=== PATIENT | male | born 1990 | race Caucasian/White ===

== ENCOUNTER 2017-10-06 17:09 | Emergency (ER) | payer BC, OTHER ==
[~2017-10-06] VITALS: Ht 175.3 cm; Wt 93.7 kg
[2017-10-06 17:36] VITALS: TEMP 36.6; Ht 175.3 cm; Wt 93.7 kg
[2017-10-06 19:18] VITALS: O2SAT 100
[2017-10-06 19:47] LABS: BASO % 0.3 %; BASO ABS # 0.02 K/uL (0-0.2); EOS % 0.3 %; EOS ABS # 0.02 K/uL (0-0.5); HEMATOCRIT 45.3 % (42-52); HEMOGLOBIN 16.9 g/dL (14.0-18.0); IG# 0.03 K/uL (0.00-0.02); LYMPH ABS # 1.94 K/uL (1.2-3.4); MEAN CELL VOLUME 85.5 fL (80-100); MEAN CORPUSCULAR HEMOGLOBIN 31.9 pg (25-34); MEAN CORPUSCULAR HGB CONC 37.3 g/dl (32-36); MEAN PLATELET VOLUME 10.8 fL (7.4-10.4); MONO % 5.9 %; MONO ABS # 0.46 K/uL (0.11-0.59); NEUT % 68.1 %; NEUT ABS # 5.28 K/uL (1.4-6.5); PLATELET COUNT 170 K/uL (130-400); RED CELL DISTRIBUTION WIDTH CV 12.3 % (11.5-14.5); RED CELL DISTRIBUTION WIDTH SD 38.4 fL (36.4-46.3); WHITE BLOOD COUNT 7.75 K/uL (4.8-10.8)
[2017-10-06 20:00] LABS: PTT PATIENT 30.4 SECONDS (21.0-31.0)
[2017-10-06 20:10] LABS: CALCIUM 9.1 mg/dl (8.5-10.1); CREATININE 1.03 mg/dl (0.60-1.40); POTASSIUM 3.8 mmol/L (3.5-5.1)
--- NOTE | 2017-10-06 20:17 | DIAGNOSTIC IMAGING REPORT ---
CHEST 2 VIEWS ROUTINE CLINICAL HISTORY: Shortness of breath. Evaluate for pneumonia. COMPARISON STUDY: No previous studies for comparison. FINDINGS: Lung volumes are within normal limits. There is no consolidation. Pulmonary vascularity is normal. No pneumothorax or pleural effusion is present. Cardiac size is normal. Mediastinal contours are normal. Left chest wall deformity is chronic. IMPRESSION: No acute cardiopulmonary findings. Electronically signed by: Almas Martinez M.D. 10/06/2017 8:16 PM Dictated Date/Time: 10/06/2017 8:15 PM
[2017-10-06 21:07] VITALS: BP 129/85; PULSE 79; O2SAT 97
--- NOTE | 2017-10-06 23:40 | EMERGENCY ROOM VISIT NOTE ---
History Report prepared by Gopiibnikki: Jono Salinas Under the Supervision of: Dr. Rajat Boateng M.D. First contact with patient: 18:58 Chief Complaint: SHORTNESS OF BREATH Stated Complaint: LIGHT HEADED, SOB, HEART IS RACING Nursing Triage Summary: Paitent with c/o SOB, feels like heart is racing, hot flushed , dizzy. C/o intermittent heart burn. Denies chest pain at current time. Symptoms have been intermittent since Monday. History of Present Illness The patient is a 26 year old male who presents to the Emergency Room with complaints of shortness of breath and a palpitation x3 days. The patient states he feels like when he has the episodes his heart is racing, but states he took his pulse and didn't feel it racing or having any palpitations. He denies chest pain when he has these episodes, but does feel occasional "heartburn." The patient denies recent leg swelling or pain. He denies being a smoker. He denies a family history of blood clots. He denies any recent long travel or prolonged immobilization. He denies a fever/chills. The patient states this is causing him to have mild anxiety noting his cousin had a heart-attack x2 months ago and had symptoms similar to this when he had it. He states he had an episode where he felt short of breath after walking to his mailbox but he also states that he can exert himself throughout the day and have no shortness of breath. He was cutting the hedges at one point and stated he had no shortness of breath at that time. Source of History: patient Onset: x3 days Symptom Intensity: moderate Timing: waxes/wanes Associated Symptoms: No fevers, No chills, No sorethroat, No cough, No neck pain, No nausea, No vomiting, No abdominal pain, No diarrhea, No urinary symptoms, No rash Review of Systems See HPI for pertinent positives & negatives. A total of 10 systems reviewed and were otherwise negative. Constitutional: No fever, No chills Respiratory: + shortness of breath, No cough Cardiovascular: + problem reported (heart racing), No chest pain, No palpitations Abdomen: No pain, No nausea, No vomiting, No diarrhea Genitourinary - Male: No hematuria, No dysuria, No urinary frequency, No urinary urgency Neurologic: + problem reported (lightheaded) Integumentary: No rash Past Medical & Surgical No past medical history Social History Smoking Status: Never Smoker Smokeless Tobacco Use: No Occupation Status: employed ([employer]) Current/Historical Medications No Active Prescriptions or Reported Meds Allergies Coded Allergies: No Known Allergies (Unverified , 10/06/17) Physical Exam Vital Signs Date Time Temp Pulse Resp B/P (MAP) Pulse Ox O2 Delivery O2 Flow Rate FiO2 10/06/17 21:07 79 14 129/85 97 Room Air 10/06/17 20:16 69 18 130/63 98 Room Air 10/06/17 19:29 82 10/06/17 19:18 100 Room Air 10/06/17 17:41 Room Air 10/06/17 17:36 36.6 91 16 177/80 98 Room Air Physical Exam Constitutional: Vital signs reviewed. Eyes: Pupils are equal round reactive to light. Conjunctiva are noninjected. ENT: Pharynx is clear without erythema or exudate. Mucous membranes are moist. Neck supple without meningeal signs. Respiratory: Clear to auscultation bilaterally. Breath sounds are equal bilaterally. Cardiovascular: Regular rate and rhythm. No rubs or gallops. GI: Soft, nondistended and nontender. Bowel sounds are present. Musculoskeletal: No peripheral edema. No lower extremity tenderness. Integumentary: No cyanosis. Neurological: The patient is awake and alert. No focal deficits. Psychiatric: Slightly anxious appearing. Medical Decision & Procedures ER Provider Diagnostic Interpretation: CHEST 2 VIEWS ROUTINE CLINICAL HISTORY: Shortness of breath. Evaluate for pneumonia. COMPARISON STUDY: No previous studies for comparison. FINDINGS: Lung volumes are within normal limits. There is no consolidation. Pulmonary vascularity is normal. No pneumothorax or pleural effusion is present. Cardiac size is normal. Mediastinal contours are normal. Left chest wall deformity is chronic. IMPRESSION: No acute cardiopulmonary findings Laboratory Results 10/06/17 19:20 Red Blood Count 5.30, Mean Corpuscular Volume 85.5, Mean Corpuscular Hemoglobin 31.9, Mean Corpuscular Hemoglobin Concent 37.3, Mean Platelet Volume 10.8, Neutrophils (%) (Auto) 68.1, Lymphocytes (%) (Auto) 25.0, Monocytes (%) (Auto) 5.9, Eosinophils (%) (Auto) 0.3, Basophils (%) (Auto) 0.3, Neutrophils # (Auto) 5.28, Lymphocytes # (Auto) 1.94, Monocytes # (Auto) 0.46, Eosinophils # (Auto) 0.02, Basophils # (Auto) 0.02 10/06/17 19:20 Test 10/06/17 19:20 10/06/17 19:27 White Blood Count 7.75 K/uL (4.8-10.8) Red Blood Count 5.30 M/uL (4.7-6.1) Hemoglobin 16.9 g/dL (14.0-18.0) Hematocrit 45.3 % (42-52) Mean Corpuscular Volume 85.5 fL (80-100) Mean Corpuscular Hemoglobin 31.9 pg (25-34) Mean Corpuscular Hemoglobin Concent 37.3 g/dl (32-36) Platelet Count 170 K/uL (130-400) Mean Platelet Volume 10.8 fL (7.4-10.4) Neutrophils (%) (Auto) 68.1 % Lymphocytes (%) (Auto) 25.0 % Monocytes (%) (Auto) 5.9 % Eosinophils (%) (Auto) 0.3 % Basophils (%) (Auto) 0.3 % Neutrophils # (Auto) 5.28 K/uL (1.4-6.5) Lymphocytes # (Auto) 1.94 K/uL (1.2-3.4) Monocytes # (Auto) 0.46 K/uL (0.11-0.59) Eosinophils # (Auto) 0.02 K/uL (0-0.5) Basophils # (Auto) 0.02 K/uL (0-0.2) RDW Standard Deviation 38.4 fL (36.4-46.3) RDW Coefficient of Variation 12.3 % (11.5-14.5) Immature Granulocyte % (Auto) 0.4 % Immature Granulocyte # (Auto) 0.03 K/uL (0.00-0.02) Prothrombin Time 10.4 SECONDS (9.0-12.0) Prothromb Time International Ratio 1.0 (0.9-1.1) Activated Partial Thromboplast Time 30.4 SECONDS (21.0-31.0) Partial Thromboplastin Ratio 1.2 Anion Gap 6.0 mmol/L (3-11) Est Creatinine Clear Calc Drug Dose 120.7 ml/min Estimated GFR () 114.0 Estimated GFR (Non- 98.4 BUN/Creatinine Ratio 11.0 (10-20) Calcium Level 9.1 mg/dl (8.5-10.1) Bedside D-Dimer 38 ng/mlFEU (0-450) Bedside Troponin I < 0.030 ng/ml (0-0.045) ECG Per My Interpretation Indication: SOB/dyspnea Rate (beats per minute): 75 Rhythm: normal sinus Findings: other (no PVCs, J-Point elevation consistent with earily repolarization anteriorly ) ED Course Recheck: 1999: Patient is currently asymptomatic. Discussed discharge with patient and he agrees to this. Patient will follow up with PCP in 2-3 days. All questions answered. Medical Decision This is a 26-year-old male presents with shortness of breath and palpitations. Differential diagnosis includes anxiety, electrolyte abnormality, metabolic derangement, pulmonary embolism, acute coronary syndrome. I did perform a limited focused review of portions of the patient's old chart on the electronic medical record. The patient has had no recent pertinent visits to this hospital. I did evaluate the patient as noted above. The patient has been having intermittent shortness of breath and palpitations for the past 3 days. He states he will sometimes become short of breath when he just walks to the mailbox but when he exerts himself he does not become short of breath. He does state he has been anxious recently. 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 IV access was established. 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 I did order and personally review the patient's 12-lead EKG and chest x-ray as described above. His twelve-lead EKG does not show any acute ischemic changes. His chest x-ray is unremarkable. I did order and review the patient's blood work as noted in the electronic medical record. D-dimer and troponin are negative. I did discuss the test results with the patient. At this time the cause of his symptoms is unclear. He was advised of the limitations of the workup done in the emergency department and the need for follow-up with his doctor. He was discharged in good condition and given return instructions as outlined below. Medication Reconcilliation Current Medication List: was personally reviewed by me Blood Pressure Screening Patient's blood pressure: Elevated blood pressure Blood pressure disposition: Referred to PCP Impression Primary Impression: Dyspnea Additional Impression: Palpitations Scribe Attestation The scribe's documentation has been prepared under my direct and personally reviewed by me in its entirety. I confirm that the note above accurately reflects all work, treatment, procedures, and medical decision making performed by me. Departure Information Dispostion Home / Self-Care Prescriptions No Active Prescriptions or Reported Meds Forms HOME CARE DOCUMENTATION FORM, IMPORTANT VISIT INFORMATION Patient Instructions My [facility] Problem Qualifiers Primary Impression: Dyspnea Dyspnea type: unspecified Qualified Codes: R06.00 - Dyspnea, unspecified
== END 2017-10-06 21:16 | disposition home or self-care (01) ==
LOC: C.EDB 17:11 → C.EDC 21:16
DX: R06.00 Dyspnea, unspecified (principal); R00.2 Palpitations; R03.0 Elevated blood-pressure reading, without diagnosis of hypertension